=== PATIENT | female | born 1985 | race African-American/Black ===

== ENCOUNTER 2017-10-23 08:07 | Emergency (ER) | payer BC ==
[~2017-10-23] VITALS: Ht 162.6 cm; Wt 74.8 kg
[~2017-10-23 08:07] MED LIST: APRISO0.375 GM PO; BC PILL PO; BENTYL10 MG PO; FLAGYL250 MG PO; IRON PO; LASIX20 MG PO; LO LOESTRIN FE1 EACH PO; POTASSIUM CHLO20 ME1 PO; PROTONIX20 MG PO; UCERIS PO; VANCOMYCIN HCL1 GM PO; ZOFRAN ODT4 MG SL; [UNRECOGNIZED DRUG - OTHER] PO
[2017-10-23] MEDS ORDERED: PREDNISONE 20 MG TAB PO ONE (08:15)
[2017-10-23] MEDS ORDERED: DIPHENHYDRAMINE HCL INJ 50 MG/ML VIAL IV ONE (08:15)
[2017-10-23] MEDS ORDERED: FAMOTIDINE 20 MG/2 ML VIAL IV STA (08:15)
[2017-10-23 08:45] LABS: BASOPHILS # (AUTO) 0.1 (0.0-0.1); BASOPHILS % 0.7 % (0.0-1.0); EOSINOPHILS # (AUTO) 0.6 (0.0-0.4); EOSINOPHILS % 8.5 % (0.0-6.0); HEMATOCRIT 40.7 % (34.2-44.1); HEMOGLOBIN 12.4 g/dL (12.0-16.0); LYMPHOCYTES # (AUTO) 3.3 (1.0-3.2); LYMPHOCYTES % 45.7 % (18.0-39.1); MEAN CORPUSCULAR HEMOGLOBIN 21.1 pg (28-32); MEAN CORPUSCULAR HGB CONC 30.5 g/dL (31-35); MEAN CORPUSCULAR VOLUME 69.3 fL (81-99); MONOCYTES # (AUTO) 0.8 (0.2-0.8); MONOCYTES % 10.4 % (4.4-11.3); NEUTROPHILS # (AUTO) 2.5 (2.1-6.9); NEUTROPHILS % 34.1 % (38.7-80.0); PLATELET COUNT 283 x10e3/uL (140-360); RED BLOOD COUNT 5.87 x10e6/uL (3.6-5.1); RED CELL DISTRIBUTION WIDTH 15.5 % (11.7-14.4)
[2017-10-23 09:05] LABS: ALANINE AMINOTRANSFERASE 96 IU/L (0-55); ALBUMIN 3.5 g/dL (3.5-5.0); ALBUMIN/GLOBULIN RATIO 0.9 (0.8-2.0); ALKALINE PHOSPHATASE 89 IU/L (40-150); ANION GAP 14.9 mmol/L (8-16); BLOOD UREA NITROGEN 12 mg/dL (7-26); BUN/CREATININE RATIO 12 (6-25); CALCIUM 8.4 mg/dL (8.4-10.2); CARBON DIOXIDE 26 mmol/L (22-29); CHLORIDE 106 mmol/L (98-107); CREATININE, SERUM 1.02 mg/dL (0.57-1.11); EST GLOMERULAR FILTRATION RATE > 60 ML/MIN (60-); GLUCOSE 77 mg/dL (74-118); SODIUM 144 mmol/L (136-145)
[2017-10-23 09:06] LABS: POTASSIUM 2.9 mmol/L (3.5-5.1)
[2017-10-23] MEDS ORDERED: POTASSIUM CHLORIDE 20 MEQ TAB CR PO STA (09:07)
[2017-10-23 09:09] LABS: BILIRUBIN,URINE NEGATIVE (NEGATIVE); KETONES,URINE NEGATIVE (NEGATIVE); LEUKOCYTE ESTERASE ,URINE 1+ (NEGATIVE); NITRITE,URINE NEGATIVE (NEGATIVE); URINE UROBILINOGEN 0.2 mg/dL (0.2 - 1)
[2017-10-23] MEDS ORDERED: POTASSIUM CHLORIDE 10MEQ/100ML 100 ML IV ONE (09:15)
[2017-10-23 09:16] LABS: CLARITY,URINE CLOUDY (CLEAR); COLOR,URINE YELLOW (YELLOW); PROTEIN,URINE DIPSTICK 1+ (NEGATIVE)
[2017-10-23 09:17] LABS: PREGNANCY TEST, URINE NEGATIVE (NEGATIVE)
[2017-10-23 09:25] LABS: BACTERIA,URINE RARE /HPF; EPITHELIAL CELLS,URINE MODERATE /LPF; MUCUS,URINE RARE (RARE); RBC,URINE 0-5 /HPF (0-5)
[2017-10-23 10:36] VITALS: BP 132/81
== END 2017-10-23 11:50 | disposition home or self-care (01) ==
LOC: ER 08:07
DX: R21 Rash and other nonspecific skin eruption (principal); T78.3XXA Angioneurotic edema, initial encounter; E87.6 Hypokalemia
CPT/HCPCS: 36415; 80053; 81001; 81025; 85025; 99284; J1200; J3480

== ENCOUNTER → 2017-11-10 | Day surgery (SDC) | payer BC ==
[~2017-11-10] MED LIST changes: +BUDESONIDE EC3 MG PO; +FENTANYL CITRATE/PF 100MCG/2 ML INJ ONE; +LIDOCAINE HCL 2% LOCAL INJ 5 ML SDV VIAL INJ ONE; +MIDAZOLAM HCL 2 MG/2 ML VIAL ONE; +PROPOFOL IV EMULSION 10 MG/ML 50 ML VIAL ONE
--- NOTE | 2017-11-10 12:41 | Operative Report ---
DATE OF PROCEDURE: November 10, 2017 REFERRING PHYSICIAN: Dr. Jorge Mcnulty. PROCEDURE PERFORMED: Colonoscopy and polypectomy with biopsies. INDICATIONS FOR COLONOSCOPY: Abdominal pain. History of ulcerative proctitis. History of multiple colon polyps. MEDICATION: Patient was done under MAC. Please see anesthesiologist's note. PROCEDURE: With the patient in the left lateral decubitus position, the flexible fiberoptic Olympus colonoscope was inserted into the rectum with ease and advanced all the way to the cecum. There was some patchy erythema noted in the cecum. The ileocecal valve was intubated, and the scope was advanced into the terminal ileum. Biopsies were obtained. The scope was then withdrawn back into the colon. The mucosa overlying the colon revealed some patchy areas of erythema, edema, and random biopsies were obtained throughout. Four polyps were hot biopsied from the ascending colon, and 9 polyps were hot biopsied from the transverse colon. The rectum revealed also some mild inflammatory changes, and biopsies were obtained. The scope was then retroflexed into the distal rectum and small internal hemorrhoids were noted, none of which was actively bleeding. The scope was then straightened out. The rectosigmoid area as well as the distal rectal area were decompressed. The scope was subsequently withdrawn after securing an adequate stool specimen that was sent for the appropriate stool studies. Patient tolerated the procedure well. IMPRESSION: 1. Colitis, multiple random biopsies obtained. 2. Ascending colon polyps times 4 hot biopsied. 3. Transverse colon polyps times 9 hot biopsied. 4. Proctitis, mild, biopsies obtained. 5. Internal hemorrhoids, none actively bleeding. PLAN: Follow up histology. Follow up stool studies. Continue Apriso 0.375 four tablets p.o. daily and continue budesonide 9 mg p.o. daily. Will add Bentyl 10 mg 1 p.o. t.i.d. and VSL#3 DS 1 p.o. b.i.d. Timing of followup colonoscopy pending pathology report. Job#: [id number] EV cc:JORGE MCNULTY MD
[2017-11-10 13:14] LABS: WBC,FECAL (FECAL LACTOFERRIN) POSITIVE (NEGATIVE)
[2017-11-10 13:15] LABS: C DIFFICILE TOXIN A&B AMP PROB **POSITIVE** (NEGATIVE)
--- OUTSIDE RECORDS SUMMARY | 2017-11-11 16:10 | XMS REPORT | Continuity of Care Document ---
Author Author [facility] Organization [facility] Address [address] [place] [address] Phone Unavailable Care Team Providers Care Implementation Manager Name Role Phone TONY LEUNG MD PCP Insurance Providers Guarantor Jada Maria Address [id number] [address] Email PTDECLINED [employer] Exchange Policy Number [id number] Subscriber's Name Adin Mariawnee Juana Relationship 18 Self / Same As Patient Group Number [id number] Effective Date 17 Expiration Date 17 Advance Directives Directive Response Recorded Date/Time Does the patient have an advance directive? No 06/26/16 10:21pm If yes, is advance directive on file with [facility]? No 06/26/16 10:21pm If not on file with [facility] will patient provide a copy? No 06/26/16 10:21pm Do you have a Directive to Physician? No 10/23/17 8:33am Do you have a Medical Power of Surgeon Assistant? No 10/23/17 8:33am Do you have an out of hospital Do Not Resuscitate Order? No 10/23/17 8:33am Do you have any special needs we should be aware of? No 10/23/17 8:33am Do you have a support person here with you today? No 10/23/17 8:33am Did patient receive Notice of Privacy Practices? Yes 10/23/17 8:33am Did patient receive patient rights and responsibilities? Yes 10/23/17 8:33am Problems Medical Problem Onset Date Status Colitis Unknown Hypokalemia Unknown Medications Current Home Medications Medication Dose Units Route Directions Days Qty Instructions Start Date Dicyclomine Hcl (Bentyl) 10 Mg Capsule 10 Mg Oral Four Times Daily as needed for Abdominal Pain Furosemide (Lasix) 20 Mg Tablet 20 Mg Oral Twice A Day 30 Tab Mesalamine (Apriso) 0.375 Gm Cap.er.24h 0.375 Gm Oral Daily 30 Cap Noreth A-Et Estra/Fe Fumarate (Lo Loestrin Fe 1-10 Tablet) 1 Each Tablet 1 Tab Oral Daily Uceris 10 Mg Oral Daily Past Home Medications Medication Directions Ordered Status Aprisco 1300 Tab, 1300 Mg Oral Daily Discontinued Bc Pill , Oral Daily Discontinued Iron , Oral Daily Discontinued Metronidazole (Flagyl) 250 Mg Tablet, 500 Mg Oral Three Times A Day Discontinued Ondansetron (Zofran Odt) 4 Mg Tab.rapdis, 4 Mg Sublingual Every 4 Hours Discontinued Pantoprazole Sodium (Protonix) 20 Mg Tablet.dr, 20 Mg Oral Daily Discontinued Potassium Chloride 20 Meq Tab.er.prt, 20 Meq Oral Daily Discontinued Vancomycin Hcl 1 Gm Vial, 250 Mg Oral Three Times A Day Discontinued Social History Social History Problem Response Recorded Date/Time Onset Date Status Hx Psychiatric Problems No 06/26/2016 10:21pm Not Applicable Not Applicable Hx Eating Disorder No 06/26/2016 10:21pm Not Applicable Not Applicable Hx Substance Use Disorder No 06/26/2016 10:21pm Not Applicable Not Applicable Hx Depression No 06/26/2016 10:21pm Not Applicable Not Applicable Hx Alcohol Use No 06/26/2016 10:21pm Not Applicable Not Applicable Hx Substance Use Treatment No 06/26/2016 10:21pm Not Applicable Not Applicable Hx Physical Abuse No 06/26/2016 10:21pm Not Applicable Not Applicable Smoking Status Start Date Stop Date Never Smoker Hospital Discharge Instructions No hospital discharge instruction information available. Plan of Care Discharge Date 10/23/17 11:50am Disposition HOME, SELF-CARE Condition at Discharge Stable Instructions/Education Provided Hypokalemia Rash - Nonspecific Forms Provided Work/School Excuse Prescriptions See Medication Section Referrals TONY LEUNG MD Address: [address] [place] [id number] Additional Instructions/Education TAKE MEDICATIONS DIRECTED FOLLOW UP WITH PRIMARY CARE DOCTOR THIS WEEK FOR POTASSIUM RECHECK FOLLOW UP WITH CATHETERIZATION LABORATORY TECHNICIAN Functional Status No functional status information available. Allergies, Adverse Reactions, Alerts No known allergies. Immunizations No immunization information available. Vital Signs Acute Vital Signs Vital Response Date/Time Pulse Pulse Rate (adult) 75 bpm (60 - 90) 10/23/2017 10:36am Respiratory Rate 18 bpm (12 - 24) 10/23/2017 10:36am Blood Pressure 132/81 mm Hg 10/23/2017 10:36am Height 5 ft 4 in 10/23/2017 8:13am Weight 165 lb 10/23/2017 8:13am Body Mass Index 28.3 kg/m^2 10/23/2017 8:13am Results Laboratory Results Test Name Result Units Flags Reference Collection Date/Time Result Date/ Time Comments White Blood Count 7.20 x10e3/uL 4.8-10.8 10/23/2017 8:30am 10/23/2017 8 :46am Red Blood Count 5.87 x10e6/uL H 3.6-5.1 10/23/2017 8:30am 10/23/2017 8: 46am Hemoglobin 12.4 g/dL 12.0-16.0 10/23/2017 8:30am 10/23/2017 8:46am Hematocrit 40.7 % 34.2-44.1 10/23/2017 8:30am 10/23/2017 8:46am Mean Corpuscular Volume 69.3 fL L 81-99 10/23/2017 8:30am 10/23/2017 8: 46am Mean Corpuscular Hemoglobin 21.1 pg L 28-32 10/23/2017 8:30am 2017 8:46am Mean Corpuscular Hemoglobin Concent 30.5 g/dL L 31-35 10/23/2017 8:30am 10/23/2017 8:46am Red Cell Distribution Width 15.5 % H 11.7-14.4 10/23/2017 8:30am 2017 8:46am Platelet Count 283 x10e3/uL 140-360 10/23/2017 8:3010/23/2017 8: 46am Neutrophils (%) (Auto) 34.1 % L 38.7-80.0 10/23/2017 8:10/23/2017 8 :46am Lymphocytes (%) (Auto) 45.7 % H 18.0-39.1 10/23/2017 8:10/23/2017 8 :46am Monocytes (%) (Auto) 10.4 % 4.4-11.3 10/23/2017 8:10/23/2017 8: 46am Eosinophils (%) (Auto) 8.5 % H 0.0-6.0 10/23/2017 8:10/23/2017 8: 46am Basophils (%) (Auto) 0.7 % 0.0-1.0 10/23/2017 8:10/23/2017 8:46am IM GRANULOCYTES % 0.6 % 0.0-1.0 10/23/2017 8:10/23/2017 8:46am Neutrophils # (Auto) 2.5 2.1-6.9 10/23/2017 8:10/23/2017 8:46am Lymphocytes # (Auto) 3.3 H 1.0-3.2 10/23/2017 8:10/23/2017 8: 46am Monocytes # (Auto) 0.8 0.2-0.8 10/23/2017 8:10/23/2017 8:46am Eosinophils # (Auto) 0.6 H 0.0-0.4 10/23/2017 8:10/23/2017 8: 46am Basophils # (Auto) 0.1 0.0-0.1 10/23/2017 8:10/23/2017 8:46am Absolute Immature Granulocyte (auto 0.04 x10e3/uL 0-0.1 10/23/2017 8: 10/23/2017 8:46am Urine Color YELLOW YELLOW 10/23/2017 8:10/23/2017 9:17am Urine Clarity CLOUDY H CLEAR 10/23/2017 8:10/23/2017 9:17am Urine Specific [place] 1.015 1.010-1.025 10/23/2017 8:30am 2017 9:17am Urine pH 6 5 - 7 10/23/2017 8:30am 10/23/2017 9:17am Urine Leukocyte Esterase 1+ H NEGATIVE 10/23/2017 8:30am 10/23/2017 9: 17am Urine Nitrite NEGATIVE NEGATIVE 10/23/2017 8:30am 10/23/2017 9:17am Urine Protein 1+ H NEGATIVE 10/23/2017 8:30am 10/23/2017 9:17am Urine Glucose (UA) NEGATIVE NEGATIVE 10/23/2017 8:30am 10/23/2017 9: 17am Urine Ketones NEGATIVE NEGATIVE 10/23/2017 8:30am 10/23/2017 9:17am Urine Urobilinogen 0.2 mg/dL 0.2 - 1 10/23/2017 8:30am 10/23/2017 9: 17am Urine Bilirubin NEGATIVE NEGATIVE 10/23/2017 8:30am 10/23/2017 9: 17am Urine Blood 1+ H NEGATIVE 10/23/2017 8:30am 10/23/2017 9:17am Urine WBC 6-10 /HPF H 0-5 10/23/2017 8:30am 10/23/2017 9:25am Urine RBC 0-5 /HPF 0-5 10/23/2017 8:30am 10/23/2017 9:25am Urine Bacteria RARE /HPF NONE 10/23/2017 8:30am 10/23/2017 9:25am Urine Epithelial Cells MODERATE /LPF NONE 10/23/2017 8:30am 10/23/2017 9:25am Urine Hyaline Casts 2-5 H 0-1 10/23/2017 8:30am 10/23/2017 9:25am Urine Mucus RARE RARE 10/23/2017 8:30am 10/23/2017 9:25am Urine Test NEGATIVE NEGATIVE 10/23/2017 8:30am 10/23/2017 9 :17am Sodium Level 144 mmol/L 136-145 10/23/2017 8:30am 10/23/2017 9:08am Potassium Level 2.9 mmol/L *L 3.5-5.1 10/23/2017 8:30am 10/23/2017 9: 08am Results called to mehul warner at 0906 on 10/23/17 by Colton Michael. RB OK. Chloride Level 106 mmol/L 98-107 10/23/2017 8:30am 10/23/2017 9:08am Carbon Dioxide Level 26 mmol/L -10/23/2017 8:3010/23/2017 9: 08am Anion Gap 14.9 mmol/L 8-16 10/23/2017 8:30am 10/23/2017 9:08am Blood Urea Nitrogen 12 mg/dL 7-10/23/2017 8:3010/23/2017 9:08am Creatinine 1.02 mg/dL 0.57-1.11 10/23/2017 8:30am 10/23/2017 9:08am BUN/Creatinine Ratio 12 02-1810/23/2017 8:3010/23/2017 9:08am Estimat Glomerular Filtration Rate > 60 ML/MIN 6010/23/2017 8:30 9:08am Ranges were taken from the National Kidney Disease Education Program and the National Kid[employer] Foundation literature. Reference ranges: 60 or greater: Normal 16-59 (for 3 consecutive months): Chronic kidney disease 15 or less: Kidney failure Glucose Level 77 mg/dL 74-118 10/23/2017 8:30am 10/23/2017 9:08am Calcium Level 8.4 mg/dL 8.4-10.2 10/23/2017 8:3010/23/2017 9:08am Total Bilirubin 0.4 mg/dL 0.2-1.2 10/23/2017 8:30am 10/23/2017 9:08am Aspartate Amino Transf (AST/SGOT) 32 IU/L 5-34 10/23/2017 8:302017 9:08am Alanine Aminotransferase (ALT/SGPT) 96 IU/L H 0-55 10/23/2017 8:30am 9:08am Total Protein 7.3 g/dL 6.5-8.1 10/23/2017 8:30am 10/23/2017 9:08am Albumin 3.5 g/dL 3.5-5.0 10/23/2017 8:30am 10/23/2017 9:08am Globulin 3.8 g/dL H 2.3-3.5 10/23/2017 8:30am 10/23/2017 9:08am Albumin/Globulin Ratio 0.9 0.8-2.0 10/23/2017 8:30am 10/23/2017 9: 08am Alkaline Phosphatase 89 IU/L 40-150 10/23/2017 8:30am 10/23/2017 9: 08am Procedures Procedure Status Date Provider(s) COLONOSCOPY W/LESION REMOVAL Completed 03/24/17 REBEKAH WILSON MD COLONOSCOPY W/LESION REMOVAL Completed 03/24/17 REBEKAH WILSON MD Encounters Encounter Location Arrival/Admit Date Discharge/Depart Date Attending Provider Departed Emergency Room [facility] 10/23/17 8:07am 11:50am JUAN CARLOS BALDWIN MD Registered Surgical Day Care [facility] 03/24/17 7:19am REBEKAH WILSON MD
== END | disposition home or self-care (01) ==
LOC: OR 07:33
PROVIDERS: ATTEND Internal Medicine Gastroenterology
DX: K51.819 Other ulcerative colitis with unspecified complications (principal); K63.5 Polyp of colon; K62.89 Other specified diseases of anus and rectum; K64.8 Other hemorrhoids; K21.9 Gastro-esophageal reflux disease without esophagitis; Z68.28 Body mass index [BMI] 28.0-28.9, adult
CPT/HCPCS: 45380; 45384; 81025; 83630; 83993; 87045; 87177; 87328; 87493; J2001; J2250; 45378; 45385

== ENCOUNTER → 2020-05-14 | Day surgery (SDC) | payer BC ==
[2020-05-11 09:43] LABS: BASOPHILS % 0.4 % (0.0-1.0); EOSINOPHILS # (AUTO) 0.1 (0.0-0.4); EOSINOPHILS % 1.4 % (0.0-6.0); HEMATOCRIT 39.7 % (34.2-44.1); HEMOGLOBIN 11.7 g/dL (12.0-16.0); LYMPHOCYTES # (AUTO) 1.7 (1.0-3.2); LYMPHOCYTES % 32.5 % (18.0-39.1); MEAN CORPUSCULAR HGB CONC 29.5 g/dL (31-35); MEAN CORPUSCULAR VOLUME 74.6 fL (81-99); MONOCYTES # (AUTO) 0.5 (0.2-0.8); NEUTROPHILS # (AUTO) 2.8 (2.1-6.9); NEUTROPHILS % 55.3 % (38.7-80.0); PLATELET COUNT 226 x10e3/uL (140-360); RED BLOOD COUNT 5.32 x10e6/uL (3.6-5.1); RED CELL DISTRIBUTION WIDTH 13.4 % (11.7-14.4)
[~2020-05-14] MED LIST changes: +BUPIVACAINE HCL 0.5% INJ 30 ML VIAL INJ ONE; +CEFAZOLIN SOD 1 GM/NS 50ML 100 ML IV ONE; +DEXAMETHASONE SOD PHOS INJ 4 MG/ML VIAL ONE; +KETOROLAC TROMETHAMINE 30 MG/ML VIAL ONE; +ONDANSETRON HCL INJ 2MG/ML 2ML 2 MG/ML VIAL ONE; +PROPOFOL IV EMULSION 10 MG/ML 20 ML VIAL ONE; -PROPOFOL IV EMULSION 10 MG/ML 50 ML VIAL ONE; +SEVOFLURANE INHAL SOLN 250 ML PEN BTL ONE; +SPRINTEC1 EACH PO; +VITAMIN B-121000 MC2 SQ; +VITAMIN D3250 MCG PO
--- NOTE | 2020-05-14 13:10 | Operative Report ---
DATE OF PROCEDURE: 05/14/2020 SURGEON: Davy Shore MD PREOPERATIVE DIAGNOSIS: Umbilical hernia. POSTOPERATIVE DIAGNOSIS: Umbilical hernia. PROCEDURE: Repair of umbilical hernia. WARE CARRIER: None. ANESTHESIA: General. INDICATIONS AND FINDINGS: The patient is a 34-year-old female with presenting complaints of bulge in her umbilicus. At Surgery, the patient was found to have umbilical hernia. Fascial defect was about 1.2 cm. TECHNIQUE: After adequate general anesthesia, the patient in supine position, the abdomen was prepped and draped in sterile fashion with ChloraPrep solution. A transverse incision was made inferior to the umbilicus and carried down through the subcutaneous tissue. The umbilicus was dissected free. The herniated mass was dissected free down to the fascia and then freed from the fascia throughout circumference of the hernia defect. Hernia defect was about 1.2 cm. The hernia defect was closed transversely with a running suture of 0 Prolene. Hemostasis was seen to be adequate. The wound was then infiltrated with 0.5% Marcaine. The umbilicus was sutured to the fascia using 3-0 Vicryl. Subcutaneous tissue was closed with running suture of 3-0 Vicryl. Skin was closed with a running subcuticular suture of 4-0 Vicryl. Dermabond and sterile dressing were applied. The patient tolerated the procedure well. Estimated blood loss was less than 5 mL. There were no complications. All counts were correct. The patient was taken to the recovery room in satisfactory condition. Davy Shore MD DWG/MODL /[id number] cc: Jorge Mcnulty MD
[2020-05-14 13:50] VITALS: BP 131/87
== END | disposition home or self-care (01) ==
LOC: OR 10:24
PROVIDERS: ATTEND Surgery
DX: K42.9 Umbilical hernia without obstruction or gangrene (principal); K51.90 Ulcerative colitis, unspecified, without complications; Z01.812 Encounter for preprocedural laboratory examination; Z11.59 Encounter for screening for other viral diseases
CPT/HCPCS: 36415; 49585; 84702; 85025; J0690; J1100; J1885; J2001; J2405; J2704; U0002; J2250; J3010

== ENCOUNTER 2020-10-26 12:08 | Emergency (ER) | payer BC ==
[~2020-10-26] VITALS: Ht 167.6 cm; Wt 73.9 kg
[~2020-10-26 12:08] MED LIST changes: -BUPIVACAINE HCL 0.5% INJ 30 ML VIAL INJ ONE; -CEFAZOLIN SOD 1 GM/NS 50ML 100 ML IV ONE; -DEXAMETHASONE SOD PHOS INJ 4 MG/ML VIAL ONE; -FENTANYL CITRATE/PF 100MCG/2 ML INJ ONE; -KETOROLAC TROMETHAMINE 30 MG/ML VIAL ONE; -LIDOCAINE HCL 2% LOCAL INJ 5 ML SDV VIAL INJ ONE; -MIDAZOLAM HCL 2 MG/2 ML VIAL ONE; -ONDANSETRON HCL INJ 2MG/ML 2ML 2 MG/ML VIAL ONE; -PROPOFOL IV EMULSION 10 MG/ML 20 ML VIAL ONE; -SEVOFLURANE INHAL SOLN 250 ML PEN BTL ONE
[2020-10-26] MEDS ORDERED: ONDANSETRON HCL INJ 2MG/ML 2ML 2 MG/ML VIAL IV STA (12:32)
[2020-10-26 12:43] LABS: BASOPHILS % 0.2 % (0.0-1.0); HEMATOCRIT 39.8 % (34.2-44.1); HEMOGLOBIN 11.9 g/dL (12.0-16.0); LYMPHOCYTES # (AUTO) 1.1 (1.0-3.2); MEAN CORPUSCULAR HEMOGLOBIN 21.9 pg (28-32); MEAN CORPUSCULAR HGB CONC 29.9 g/dL (31-35); MEAN CORPUSCULAR VOLUME 73.3 fL (81-99); MONOCYTES # (AUTO) 0.2 (0.2-0.8); MONOCYTES % 2.1 % (4.4-11.3); NEUTROPHILS # (AUTO) 8.3 (2.1-6.9); PLATELET COUNT 276 x10e3/uL (140-360); RED BLOOD COUNT 5.43 x10e6/uL (3.6-5.1); RED CELL DISTRIBUTION WIDTH 13.4 % (11.7-14.4)
[2020-10-26] MEDS ORDERED: FENTANYL CITRATE/PF 100MCG/2 ML INJ IV PRN (12:45)
[2020-10-26 13:08] LABS: ALANINE AMINOTRANSFERASE 12 IU/L (0-55); ALBUMIN 3.1 g/dL (3.5-5.0); ALBUMIN/GLOBULIN RATIO 0.7 (0.8-2.0); ALKALINE PHOSPHATASE 77 IU/L (40-150); ANION GAP 12.2 mmol/L (8-16); BLOOD UREA NITROGEN 10 mg/dL (7-26); BUN/CREATININE RATIO 10 (6-25); CALCIUM 8.4 mg/dL (8.4-10.2); CARBON DIOXIDE 27 mmol/L (22-29); CHLORIDE 106 mmol/L (98-107); CREATININE, SERUM 1.02 mg/dL (0.57-1.11); EST GLOMERULAR FILTRATION RATE > 60 ML/MIN (60-); GLUCOSE 105 mg/dL (74-118); POTASSIUM 3.2 mmol/L (3.5-5.1); SODIUM 142 mmol/L (136-145)
[2020-10-26 13:23] LABS: CLARITY,URINE CLEAR (CLEAR); COLOR,URINE YELLOW (YELLOW); KETONES,URINE NEGATIVE (NEGATIVE); LEUKOCYTE ESTERASE ,URINE NEGATIVE (NEGATIVE); NITRITE,URINE NEGATIVE (NEGATIVE); PREGNANCY TEST, URINE NEGATIVE (NEGATIVE); PROTEIN,URINE DIPSTICK 1+ (NEGATIVE); URINE UROBILINOGEN 0.2 mg/dL (0.2 - 1)
[2020-10-26 13:32] LABS: BACTERIA,URINE FEW /HPF; EPITHELIAL CELLS,URINE MODERATE /LPF; RBC,URINE 0-5 /HPF (0-5)
[2020-10-26] MEDS ORDERED: IOPAMIDOL 370 MG/ML 200 ML INFUS..BTL INJ ONE (14:02)
[2020-10-26] MEDS ORDERED: SODIUM CHLORIDE 0.9% 50ML 50 ML ONE (14:02)
== END 2020-10-26 15:25 | disposition home or self-care (01) ==
LOC: ER 12:29
DX: R10.30 Lower abdominal pain, unspecified (principal); K52.9 Noninfective gastroenteritis and colitis, unspecified
CPT/HCPCS: 36415; 74177; 80053; 81001; 81025; 85025; 99284; Q9967

== ENCOUNTER → 2020-11-26 | Day surgery (SDC) | payer BC ==
[~2020-11-26] MED LIST changes: +BENTYL10 MG/1 ML PO; +LIDOCAINE HCL 2% LOCAL INJ 5 ML SDV VIAL INJ ONE; +MESALAMINE800 MG PO; +PROPOFOL IV EMULSION 10 MG/ML 20 ML VIAL ONE
[2020-11-26 13:05] VITALS: BP 121/91
[2020-11-26 14:04] LABS: WBC,FECAL (FECAL LACTOFERRIN) POSITIVE (NEGATIVE)
[2020-11-26 15:13] LABS: C DIFFICILE TOXIN A&B AMP PROB **POSITIVE** (NEGATIVE)
== END | disposition home or self-care (01) ==
LOC: OR 08:19
PROVIDERS: ATTEND Internal Medicine Gastroenterology
DX: K51.811 Other ulcerative colitis with rectal bleeding (principal); K63.5 Polyp of colon; K62.89 Other specified diseases of anus and rectum; K64.8 Other hemorrhoids; K29.60 Other gastritis without bleeding; K20.90 Esophagitis, unspecified without bleeding; Z01.812 Encounter for preprocedural laboratory examination; Z20.822 Contact with and (suspected) exposure to COVID-19; Z68.29 Body mass index [BMI] 29.0-29.9, adult
CPT/HCPCS: 36415; 45380; 81025; 83630; 83993; 85651; 86140; 86256; 86671; 87045; 87177; 87328; 87493; J2001; J2704; U0002